=== PATIENT | male | born 1980 | race Two or more races ===

== ENCOUNTER 2018-12-15 18:18 | Emergency (ER) | payer SELFPAY ==
[~2018-12-15] VITALS: Ht 165.1 cm; Wt 81.6 kg
[2018-12-15] MEDS ORDERED: MORPHINE SULFATE 4 MG/ML VIAL. IV STA (19:16)
--- NOTE | 2018-12-15 19:22 | PHYS DOC ---
Adult General Chief Complaint Chief Complaint: SHOULDER INJURY HPI HPI Patient is a 38 year old male who presents for left shoulder pain since 11 AM this morning. The patient states she tried a gravel wall and states his shoulder filling came out. Patient had multiple dislocations in the past. The patient rates pain as 6 out of 10 in severity and sharp. (MUNIRA LOMAS APRN) Review of Systems Review of Systems Constitutional: Denies fever or chills [] Eyes: Denies change in visual acuity, redness, or eye pain [] HENT: Denies nasal congestion or sore throat [] Respiratory: Denies cough or shortness of breath [] Cardiovascular: No additional information not addressed in HPI [] GI: Denies abdominal pain, nausea, vomiting, bloody stools or diarrhea [] : Denies dysuria or hematuria [] Musculoskeletal: Reports left shoulder pain. Integument: Denies rash or skin lesions [] Neurologic: Denies headache, focal weakness or sensory changes [] Endocrine: Denies polyuria or polydipsia [] Complete systems were reviewed and found to be within normal limits, except as documented in this note. (MUNIRA LOMAS APRN) Current Medications Current Medications Current Medications Medications (Trade) Dose Ordered Sig/Nat Start Time Stop Time Status Last Admin Dose Admin Morphine Sulfate (Morphine Sulfate) 4 mg 1X STAT 12/15/18 19:16 12/15/18 19:37 DC 12/15/18 19:38 4 MG (MUNIRA GONZALEZ DO) Allergies Allergies Allergies Coded Allergies Type Severity Reaction Last Updated Verified No Known Drug Allergies 12/15/18 No (MUNIRA GONZALEZ DO) Physical Exam Physical Exam Constitutional: Well developed, well nourished, no acute distress, non-toxic appearance. [] HENT: Normocephalic, atraumatic, bilateral external ears normal, oropharynx moist, no oral exudates, nose normal. [] Eyes: PERRLA, EOMI, conjunctiva normal, no discharge. [] Neck: Normal range of motion, no tenderness, supple, no stridor. [] Cardiovascular:Heart rate regular rhythm, no murmur [] Lungs & Thorax: Bilateral breath sounds clear to auscultation [] Abdomen: Bowel sounds normal, soft, no tenderness, no masses, no pulsatile masses. [] Skin: Warm, dry, no erythema, no rash. [] Back: No tenderness, no CVA tenderness. [] Extremities: Tenderness to L shoulder, unable to lift arm over his head. Neurologic: Alert and oriented X 3, normal motor function, normal sensory function, no focal deficits noted. [] Psychologic: Affect normal, judgement normal, mood normal. [] (MUNIRA LOMAS APRN) Current Patient Data Vital Signs Vital Signs Date Time Temp Pulse Resp B/P (MAP) Pulse Ox O2 Delivery O2 Flow Rate FiO2 12/15/18 19:58 92 15 137/92 (107) 94 Room Air 12/15/18 19:12 97.9 97.9 (MUNIRA GONZALEZ DO) EKG EKG [] (MUNIRA LOMAS APRN) Radiology/Procedures Radiology/Procedures Shoulder x-ray read by Dr. Gonzalez No acute obvious fracture or dislocation. (MUNIRA LOMAS APRN) Radiology/Procedures PROCEDURE: SHOULDER 2+V LEFT Exam: Shoulder left 3 views INDICATION: Shoulder pain TECHNIQUE: Frontal view of the left shoulder with internal and external rotation with transscapular Y view. Comparisons: None FINDINGS: Bone mineralization is normal. No acute or healed fractures. Soft tissues are unremarkable. Joint spaces are well-maintained. IMPRESSION: No acute osseous abnormality. Electronically signed by: Gabriel Washington MD (12/15/2018 10:31 PM) [facility] (MUNIRA GONZALEZ DO) Course & Med Decision Making Course & Med Decision Making Pertinent Labs and Imaging studies reviewed. (See chart for details) Will get x-ray, give pain medication. Patient is unable to lift his shoulder above his head. Will have nursing place in sling and have follow up with ortho. (MUNIRA LOMAS APRN) Dragon Disclaimer Dragon Disclaimer This electronic medical record was generated, in whole or in part, using a voice recognition dictation system. (MUNIRA LOMAS APRN) Departure Departure Impression: Primary Impression: Shoulder pain, acute Disposition: 01 HOME, SELF-CARE Condition: STABLE Referrals: NO PCP (PCP) MOLLY GRIMM II, MD Patient Instructions: Shoulder Immobilizer Additional Instructions: Thank you for visiting [facility]. We appreciate you trusting us with your care. If any additional problems come up don't hesitate to return to visit us. Please follow up with your primary care provider so they can plan additional care if needed and know about the problem that you had. If symptoms worsen come back to the Emergency Department. Any concerning symptoms that start such as chest pain, shortness of air, weakness or numbness on one side of the body, running high fevers or any other concerning symptoms return to the ER. Please follow up with your primary care doctor and orthopedics for further workup. Attending Signature Attending Signature I have reviewed the PA/[employer]'s note and plan of care. I was available for consultation as needed during the patient's visit in the emergency department. I agree with the clinical impression, plan, and disposition. (MUNIRA GONZALEZ DO) Problem Qualifiers Primary Impression: Shoulder pain, acute Laterality: left Qualified Codes: M25.512 - Pain in left shoulder MUNIRA LOMAS APRN Dec 15, 2018 19:21 MUNIRA GONZALEZ DO Dec 16, 2018 00:22
[2018-12-15 19:58] VITALS: BP 137/92
--- NOTE | 2018-12-15 22:34 | RAD ---
Exam: Shoulder left 3 views INDICATION: Shoulder pain TECHNIQUE: Frontal view of the left shoulder with internal and external rotation with transscapular Y view. Comparisons: None FINDINGS: Bone mineralization is normal. No acute or healed fractures. Soft tissues are unremarkable. Joint spaces are well-maintained. IMPRESSION: No acute osseous abnormality. Electronically signed by: Gabriel Washington MD (12/15/2018 10:31 PM) [facility]
== END 2018-12-15 20:41 | disposition home or self-care (01) ==
LOC: ER 18:18
DX: M25.512 Pain in left shoulder (principal)
CPT/HCPCS: 73030; 96374; 99284; J2270